=== PATIENT | male | born 1980 | race Caucasian/White ===

== ENCOUNTER → 2016-07-06 | Outpatient (CLI) | payer OTHER ==
--- NOTE | 2016-07-06 13:45 | REP ---
MRI study of the right foot without and with IV contrast: History: Right foot soft tissue mass. Plantar aspect. Comparison radiograph May 23, 2016. Gadolinium enhancement dose: 19.6 mL of intravenous ProHance is administered. MR technique: MR markers are placed at the volar aspect of the forefoot proximal to and distal to the mass. Axial, coronal, and sagittal imaging planes are utilized. T1, proton density and T2-weighted scans were obtained with without fat saturation and before and after gadolinium enhancement. MR findings: There is a 2.7 x 1.8 x 0.9 cm mass along the volar aspect of the flexor tendon mechanism at the MTP joint of the second digit. This shows relatively low T1, heterogeneously high T2 signal intensity and demonstrates fairly vigorous contrast enhancement. There appears to be a small linear fluid collection centrally within the lesion. There is a similar smaller lesion in the analogous location at the fifth metatarsal phalangeal joint volar aspect. This measures 1.6 x 0.7 x 1.4 cm. This lesion has similar signal intensity characteristics and also appears to enhance although it is a little less well seen. Cortical and medullary bone signal intensity are normal. No tendon sheath effusion or joint effusion is evident. Plantar fascia is smooth. Study is otherwise unremarkable. Impression: Two soft tissue masses both located superficial to the flexor tendon mechanism at the DIP joints of the second and fifth digits. Differential possibilities include plantar fibromatosis, giant cell tumor of tendon sheath, foreign body granuloma. Signed by Sim Chapa MD 07/06/2016 06:36 P
== END | disposition home or self-care (01) ==
LOC: M RAD 11:59
PROVIDERS: ATTEND Podiatrist
DX: R93.7 Abnormal findings on diagnostic imaging of other parts of musculoskeletal system (principal)
CPT/HCPCS: 73720; A9576

== ENCOUNTER → 2016-08-30 | Outpatient (CLI) | payer OTHER ==
[2016-08-30 10:48] LABS: BASO % 0.7 % (0.0-1.0); EOS # 0.1 K/mm3 (0.0-0.50); LARGE UNSTAINED CELL # 0.2 K/mm3 (0.0-0.4); LARGE UNSTAINED CELL % 2.3 % (0.0-4.0); LYMPH # 2.5 K/mm3 (1.5-4.5); LYMPH % 29.9 % (24.0-44.0); MEAN CORPUSCULAR HEMOGLOBIN 30.1 pg (27.0-33.0); MONO # 0.5 K/mm3 (0.0-0.8); MONO % 6.4 % (0.0-5.0); NEUTROPHILS # 4.6 K/mm3 (1.8-7.7); NEUTROPHILS % 59.7 % (36.0-66.0); PLATELET COUNT, AUTOMATED 259 k/mm3 (150-450); RED CELL DISTRIBUTION WIDTH 12.4 % (11.5-14.5); WHITE BLOOD COUNT 7.7 K/mm3 (4.0-10.0)
[2016-08-30 11:05] LABS: ANION GAP 7 MEQ/L (8-16); BLOOD UREA NITROGEN 11 MG/DL (7-18); CALCIUM LEVEL 9.1 MG/DL (8.5-10.1); CARBON DIOXIDE LEVEL 28 MEQ/L (21-32); CHLORIDE LEVEL 105 MEQ/L (98-107); CREATININE FOR GFR 1.23 MG/DL (0.70-1.30); GLOMERULAR FILTRATION RATE > 60.0 (>60); GLUCOSE, FASTING 97 MG/DL (70-105); POTASSIUM SERUM 4.5 MEQ/L (3.5-5.1); SODIUM LEVEL 140 MEQ/L (136-145)
== END ==
LOC: M LAB 10:04
PROVIDERS: ATTEND Podiatrist
DX: Z01.812 Encounter for preprocedural laboratory examination (principal)

== ENCOUNTER → 2018-01-26 | Outpatient (CLI) | payer OTHER ==
[2018-01-26 19:56] LABS: BASO # 0.1 10^3/uL (0.0-0.2); BASO % 0.8 % (0.0-1.0); EOS # 0.1 10^3/uL (0.0-0.50); EOS % 1.3 % (0.0-3.0); HEMATOCRIT 44.8 % (42.0-52.0); HEMOGLOBIN 15.7 g/dl (13.5-17.5); IMMATURE GRANULOCYTE % 0.4 % (0-3.0); LYMPH # 3.7 10^3/uL (1.5-4.5); LYMPH % 43.6 % (24.0-44.0); MEAN CORPUSCULAR HEMOGLOBIN 29.3 pg (27.0-33.0); MEAN CORPUSCULAR VOLUME 83.7 fl (80.0-96.0); MONO # 0.9 10^3/uL (0.0-0.8); MONO % 10.1 % (0.0-5.0); NEUTROPHILS # 3.7 10^3/uL (1.8-7.7); NEUTROPHILS % 43.8 % (36.0-66.0); PLATELET COUNT, AUTOMATED 317 10^3/uL (150-450); RED BLOOD COUNT 5.35 10^6/uL (4.30-6.10); RED CELL DISTRIBUTION WIDTH 12.3 % (11.5-14.5); WHITE BLOOD COUNT 8.4 10^3/uL (4.0-10.0)
[2018-01-26 20:20] LABS: ALBUMIN/GLOBULIN RATIO 1.08 (1.00-1.93); ALKALINE PHOSPHATASE 59 U/L (45-117); ALT/SGPT 43 U/L (12-78); ANION GAP 8 MEQ/L (8-16); AST/SGOT 24 U/L (7-37); BILIRUBIN,TOTAL 0.7 MG/DL (0.2-1.0); BLOOD UREA NITROGEN 16 MG/DL (7-18); CALCIUM LEVEL 8.9 MG/DL (8.5-10.1); CARBON DIOXIDE LEVEL 29 MEQ/L (21-32); CHLORIDE LEVEL 104 MEQ/L (98-107); CREATININE FOR GFR 1.32 MG/DL (0.70-1.30); FREE T4 0.86 NG/DL (0.76-1.46); GLOMERULAR FILTRATION RATE > 60.0 (>60); GLUCOSE, FASTING 83 MG/DL (70-100); POTASSIUM SERUM 4.2 MEQ/L (3.5-5.1); SODIUM LEVEL 141 MEQ/L (136-145); TOTAL PROTEIN 7.7 GM/DL (6.4-8.2)
== END ==
LOC: M WUC 18:22
DX: R42 Dizziness and giddiness (principal)
CPT/HCPCS: 84443

== ENCOUNTER → 2018-06-15 | Outpatient (CLI) | payer OTHER ==
[~2018-06-15] MED LIST: no medications
--- NOTE | 2018-06-15 19:07 | REP ---
Left wrist four views History: Injury There is no acute fracture or dislocation. The joint spaces are normal in appearance. Impression: There is no acute fracture or dislocation. Electronically Signed by Francisco Sarmiento MD 06/15/2018 06:58 P
== END ==
LOC: M WUC 18:09
PROVIDERS: ATTEND Physician Assistant
DX: S63.512A Sprain of carpal joint of left wrist, initial encounter (principal); X58.XXXA Exposure to other specified factors, initial encounter; Y92.89 Other specified places as the place of occurrence of the external cause

== ENCOUNTER → 2019-02-06 | Outpatient (CLI) | payer OTHER, SELFPAY ==
--- NOTE | 2019-02-06 12:11 | REP ---
Hepatobiliary scan and gallbladder ejection fraction: History: Upper quadrant pain Technique: 6.6 mCi of technetium-99m mebrofenin was injected and sequential anterior images are acquired. 65 minutes after the mebrofenin injection, the patient consumed 8 ounces Ensure and an additional 60 minutes of imaging was acquired. Regions of interest are plotted around the gallbladder. Findings: The initial hepatocellular parenchymal uptake phase is normal and homogeneous. Intra- and extra-hepatic bile ducts are labeled by the 10 -minute image. The gallbladder is first labeled on the 10 -minute image. There is normal washout from the liver parenchyma into the gallbladder and small intestine on subsequent images. The gallbladder ejection fraction is 27 %. Values greater than 35 % are considered normal with this technique. Impression: Normal hepatobiliary scan and slightly decreased gallbladder ejection fraction. Electronically Signed by Sim Chapa MD 02/06/2019 10:30 A
== END ==
LOC: M RAD 07:42
PROVIDERS: ATTEND Preventive Medicine Undersea and Hyperbaric Medicine
DX: R10.11 Right upper quadrant pain (principal)
CPT/HCPCS: 78227; A9537; J2805

== ENCOUNTER → 2020-03-10 | Outpatient (CLI) | payer OTHER ==
[~2020-03-10] MED LIST changes: +LISI-538 PO
--- NOTE | 2020-03-23 09:18 | REP ---
PET CT HISTORY: Diagnosing lung malignancy. COMPARISON: CT study of the chest has been retrieved from [facility] dated 02/28/2020. TECHNIQUE: 45 minutes following the intravenous injection of an 8.09 mCi dose of F18 fluorodeoxyglucose (FDG), three-dimensional PET CT imaging is acquired from the skull base to the proximal thighs. PET CT FINDINGS: There is mildly increased metabolic uptake in borderline size axillary lymph nodes bilaterally. Maximum standard uptake value in the left axillary nodes is 4.63 and that in the right 4.14. No other abnormal uptake is seen. Head and neck soft tissues are unremarkable. No abnormal hypermetabolic pulmonary parenchymal uptake is observed. Maximum standard uptake in the largest nodule, that being in the right lower lobe seen on chest CT, is only 1.21. No abnormal hypermetabolic chris uptake is seen in the hilar or mediastinal region. In the abdomen and pelvis, normal hepatic, splenic, gastrointestinal, and genitourinary FDG distribution is seen. No abnormal hypermetabolic uptake is seen in the abdomen or pelvis. IMPRESSION: Nonspecific mildly increased uptake in bilateral axillary lymph nodes. No abnormal hypermetabolic uptake is seen within the thorax. Continued follow-up for pulmonary nodules recommended. MTDD
== END ==
LOC: M PLARAD 15:34
PROVIDERS: ATTEND Family Medicine
DX: R91.1 Solitary pulmonary nodule (principal)
CPT/HCPCS: 78815; A9552

== ENCOUNTER → 2020-03-23 | Outpatient (CLI) | payer OTHER ==
[~2020-03-23] MED LIST changes: +LIDOCAINE 1% MDV 20ML VIAL As Ordered ONE; +SODIUM BICARBONATE 8.4% INJ 50MEQ 50 ML VIAL As Ordered ONE
[2020-03-23 11:10] VITALS: BP 162/100
--- NOTE | 2020-03-26 09:50 | REP ---
LEFT AXILLARY ULTRASOUND HISTORY: Prescan for lymph node biopsy under ultrasound guidance. COMPARISON: Made with CT study of the chest from 02/28/[address] study 03/10/2020, which showed hypermetabolic axillary nodes. FINDINGS: Prebiopsy sonography of the left axilla confirms the presence of a lymph node measuring 2.0 x 1.0 x 1.4 cm. This is felt to correspond with the avid lymph node in the left axilla on PET CT study. Biopsy will proceed. MTDD
--- NOTE | 2020-03-26 12:52 | REP ---
ULTRASOUND-GUIDED LYMPH NODE BIOPSY The procedure was performed by GREGORIA Burger, under the direct supervision of Dr. Chapa. The risks and benefits of the procedure were explained to the patient and an informed consent was obtained both verbally and written. Directly prior to the start of the procedure, a formal time-out was completed in the procedure room. One of the abnormal lymph nodes was localized in the left axillary region using ultrasound guidance. The skin was prepped and draped in a sterile fashion. 11-mm of buffered Lidocaine was used as a local anesthetic. Using ultrasound guidance, a 19-20 gauge coaxial needle biopsy system was inserted and advanced to the lymph node. Eight core biopsy samples were obtained and sent to the lab. Four specimens were placed in formalin and the other four were placed in RPMI to be sent out. The patient tolerated the procedure well and there were no immediate complications. After the appropriate amount of monitored convalescence, the patient was discharged from the department. ZIGGY
== END ==
LOC: M IRPRO 09:25
PROVIDERS: ATTEND Internal Medicine Pulmonary Disease
DX: R59.9 Enlarged lymph nodes, unspecified (principal); R91.8 Other nonspecific abnormal finding of lung field